=== PATIENT | male | born 1995 | race Caucasian/White ===

== ENCOUNTER 2016-08-19 08:48 | Emergency (ER) | payer SELFPAY ==
[~2016-08-19] VITALS: Ht 167.6 cm; Wt 68.2 kg
[2016-08-19 13:45] VITALS: BP 116/72
== END 2016-08-19 13:50 | disposition home or self-care (01) ==
LOC: EMS 09:02
DX: G54.0 Brachial plexus disorders (principal); F12.90 Cannabis use, unspecified, uncomplicated
CPT/HCPCS: 72040; 99284